=== PATIENT | male | born 1950 | race Caucasian/White ===

== ENCOUNTER → 2019-06-12 | Outpatient (CLI) | payer MEDICARE ==
--- NOTE | 2019-06-12 13:51 | Diagnostic Imaging Report ---
INDICATION: Right knee pain and popping. TIME OF EXAM: 1:20 p.m. Three views of the right knee were obtained. Alignment is normal. Joint spaces are well maintained. Articular surfaces are smooth. No fracture or dislocation is seen. There is some fullness in the suprapatellar region suggestive of a joint effusion. IMPRESSION: Joint effusion. No acute bony abnormality is detected. Dictated by: Dictated on workstation # [id number]
== END ==
LOC: RAD FS 13:05
PROVIDERS: ATTEND Nurse Practitioner
DX: M25.461 Effusion, right knee (principal)
CPT/HCPCS: 73562

== ENCOUNTER → 2021-02-03 | Outpatient (CLI) | payer MEDICARE ==
--- NOTE | 2021-02-03 14:17 | Diagnostic Imaging Report ---
INDICATION: Pain in the right shoulder. TIME OF EXAM: 1:56 p.m. Three views of the right shoulder demonstrate normal glenohumeral and acromioclavicular alignment. Acromiohumeral space is normal. No fracture or dislocation is seen. IMPRESSION: No acute bony abnormality is detected. Dictated by: Dictated on workstation # [id number]
--- NOTE | 2021-02-03 14:19 | Diagnostic Imaging Report ---
INDICATION: Left shoulder pain. TIME OF EXAM: 1:58 p.m. Three views of the left shoulder were obtained. There appears to be a healed fracture of the mid-third of the left clavicle. Acromioclavicular and glenohumeral alignment is normal. Acromiohumeral space is normal. No acute fracture or dislocation is seen. IMPRESSION: Healed left clavicular fracture. No acute bony abnormality is detected. Dictated by: Dictated on workstation # [id number]
== END ==
LOC: RAD FS 13:40
PROVIDERS: ATTEND Nurse Practitioner
DX: M25.512 Pain in left shoulder (principal); M25.511 Pain in right shoulder; Z87.81 Personal history of (healed) traumatic fracture
CPT/HCPCS: 73030